=== PATIENT | female | born 1985 | race Caucasian/White ===

== ENCOUNTER 2016-12-28 09:20 | Day surgery (SDC) | payer BC ==
[~2016-12-28] VITALS: Ht 152.4 cm; Wt 96.2 kg
[~2016-12-28 09:20] MED LIST: MACROBID100 MG PO; MOTRIN800 MG PO; ZANTAC150 MG PO
[2016-12-28 10:18] VITALS: BP 111/77
[2016-12-28 10:20] VITALS: BP 111/77
[2016-12-28 12:58] VITALS: BP 112/75
[2016-12-28 13:45] VITALS: BP 119/76
[2016-12-31 13:54] LABS: INTERNAL CONTROL VALID? YES
== END 2016-12-28 14:00 | disposition home or self-care (01) ==
LOC: SDC 09:20
PROVIDERS: Obstetrics & Gynecology Gynecology
PROC: 0UDB8ZX Extraction of Endometrium, Via Natural or Artificial Opening Endoscopic, Diagnostic (ICD-10-PCS; principal; 2016-12-28)
DX: N93.8 Other specified abnormal uterine and vaginal bleeding (principal); R93.8 Abnormal findings on diagnostic imaging of other specified body structures; K21.9 Gastro-esophageal reflux disease without esophagitis; E66.9 Obesity, unspecified; Z68.41 Body mass index [BMI] 40.0-44.9, adult; Z82.49 Family history of ischemic heart disease and other diseases of the circulatory system; Z83.3 Family history of diabetes mellitus; Z82.5 Family history of asthma and other chronic lower respiratory diseases; Z80.49 Family history of malignant neoplasm of other genital organs; Z87.891 Personal history of nicotine dependence
CPT/HCPCS: 84703; 88305; J1100; J1170; J1885; J2250; J2405; J3010